=== PATIENT | female | born 2000 | race Caucasian/White ===

== ENCOUNTER 2024-12-22 10:23 | Outpatient (RCR) | payer BC, SELFPAY ==
--- OUTSIDE RECORDS SUMMARY | 2024-12-22 10:33 | XMS_ITS | Encounter Summary ---
Author Organization [facility] Address [address] [place] [address] Care Team Providers Care Sliver Lap Machine Tender Name Role Phone Esteban Lane MD Primary Care Provider [phone] Encounter Details Date Type Department Care Team (Late st Contact Info) Description 10/31/2024 Abstract [facility] [address] [place] [address] Braden Pinzon [address] [place] [address] Social History Tobacco Use Types Packs/Day Years Used Date Smoking Tobacco: Never Smokeless Tobacco: Never Alcohol Use Standard Drinks/Week Comments Not Currently 0 (1 standard drink = 0.6 oz pur e alcohol) caffeine: 2-3 cups per day Comments Unknown Sex and Gender Information Value Date Recorded Sex Assigned at Not on file Legal Sex Female 6:59 PM EDT Gender Identity Not on file Sexual Orientation Not on file documented as of this encounter Plan of Treatment Upcoming Encounters Date Type Department Care Team (Late st Contact Info) Description 03/05/2025 9:40 AM EDT Office Visit [facility] [address] [facility] [place] [phone] Braden Pinzon [address] HernandezBR[place] [phone] 11/19/2025 10:50 AM EDT Office Visit [facility] [address] [place] [address] Kristen Fang, ORTHODONTIST VICE PRESIDENT-PACKAGE DELIVERY ROOM SERVICE RUNNER [address] [facility] [address] [place] [address] documented as of this encounter Visit Diagnoses Not on filedocumented in this encounter Care Teams Sliver Lap Machine Tender Relationship Specialty Start Date End Date Esteban Lane MD [address] [place] [address] [address] [facility] [address] [place] [address] PCP - General Family Medicine 07/23/23 documented as of this encounter
--- OUTSIDE RECORDS SUMMARY | 2024-12-22 10:33 | XMS_ITS | Clinical Summary ---
Author Organization [facility] Address [address] [place] [address] Phone Care Team Providers Care Night Supervisor Name Role Phone Unavailable Primary Care Provider Unavailabl e Social History Tobacco Use Types Packs/Day Years Used Date Smoking Tobacco: Never Assessed Comments Unknown Sex and Gender Information Value Date Recorded Sex Assigned at Not on file Legal Sex Female 8:29 PM EST Gender Identity Not on file Sexual Orientation Not on file Plan of Treatment Not on file
--- OUTSIDE RECORDS SUMMARY | 2024-12-22 10:33 | XMS_ITS | Encounter Summary ---
Author Organization [facility] Address [address] [place] [address] Care Team Providers Care Manager Employee Benefits Name Role Phone Esteban Lane MD Primary Care Provider [phone] Encounter Details Date Type Department Care Team (Late st Contact Info) Description 12/20/2024 Telephone [facility] OB [address] [facility] [place] [address] Suzanna Lin LPN Social History Tobacco Use Types Packs/Day Years [...] on file documented as of this encounter Miscellaneous Notes * Telephone Encounter - Suzanna Lin LPN - 12/20/2024 3:25 PM EDT 12/19/24 @ 1002am Patient called and LMOM stating that she is on Day 4 of her cycle and she should have started her cycle by now. Patient voiced she had taken a UPT and it showed a faint positive. Patient would like to know if she should continue to wait or have labs drawn. 12/20/24 @3:26pm Called patient and LMOM that nursing was returning her call. Will await for to return call to office. Suzanna Conway LPN 12/21/24 Patient returned nurses call and request call back. 12/22/24 9:35am Called patient and LMOM requesting call back. [place] patient to discuss late cycle.Patient voiced that her last cycle started on 11/16/24. Patient stated that she had a positive test the other day and now everyday since has been negative. Patient would like to know next step. Informed patient that with using Provera to induce cycles we like for patient to be a week latefor cycle, confirm negative and then patient will be able to be given Provera to induce cycle. PVU and offered to have HCG drawn at [facility] to confirm either way. Nursing will reach out to patient or patient to call office prior to closing today to see if Provera is to be sent in or if labs need to be redrawn. Suzanna Conway LPN documented in this encounter Plan of Treatment Upcoming Encounters Date Type Department Care Team (Late st Contact Info) Description 03/05/2025 9:40 AM EDT Office Visit [facility] [address] [facility] [place] [address] Braden Pinzon DO [address] [facility] [place] [address] 11/19/2025 10:50 AM EDT Office Visit [facility] [address] [place] [phone] Kristen Fang, MATRIX DRIER TENDER-LINE PAINTING MACHINE OPERATOR [address] [place] [address] Scheduled Orders Name Type Priority Associated Diagnoses Orde r Schedule hCG, quantitative, Lab Routine Anovulation Irregular menses Expected: 12/22/2024 (Approximate), Expires: 12/22/2025 documented as of this encounter Visit Diagnoses Diagnosis Anovulation Female infertility associated with anovulation Irregular menses Irregular menstrual cycle documented in this encounter Care Teams Manager Employee Benefits Relationship Specialty Start Date End Date Esteban Lane MD [address] [place] [phone] PCP - General Family Medicine 07/23/23 documented as of this encounter
== END 2025-01-09 09:47 | disposition home or self-care (01) ==
LOC: LAB 10:23
PROVIDERS: PCP Family Medicine; Visit Provider Obstetrics & Gynecology
DX: Z51.81 Encounter for therapeutic drug level monitoring (principal); N97.0 Female infertility associated with anovulation; N92.6 Irregular menstruation, unspecified
CPT/HCPCS: 36415; 84702

== ENCOUNTER 2025-02-19 15:25 | Outpatient (RCR) | payer BC, SELFPAY | END 2025-03-10 23:59 | disposition home or self-care (01) | LOC: LAB 15:25 | PROVIDERS: PCP Family Medicine; Visit Provider Obstetrics & Gynecology | DX: N97.0 Female infertility associated with anovulation (principal); N92.6 Irregular menstruation, unspecified | CPT/HCPCS: 36415; 84144; 84702 ==

== ENCOUNTER 2025-03-05 15:01 | Outpatient (REF) | payer BC, SELFPAY ==
[2025-03-09 17:09] LABS: Age Gdln ACOG Testing Note (.); IGP, rfx Aptima HPV ASCU Note (.)
== END 2025-03-05 15:02 | disposition home or self-care (01) ==
LOC: LAB 15:01
PROVIDERS: PCP Family Medicine; Visit Provider Nurse Practitioner Family
DX: Z01.419 Encounter for gynecological examination (general) (routine) without abnormal findings (principal)
CPT/HCPCS: 88175

== ENCOUNTER 2025-03-28 14:18 | Outpatient (OUT) | payer BC, SELFPAY ==
[2025-03-28 15:11] LABS: Hematocrit 37.7 % (36.0-48.0); Hemoglobin 13.3 g/dL (12.0-16.0); Immature Granulocytes Abs Auto 0.05 10^3/uL (0.00-0.03); Immature Granulocytes Pct Auto 0.5 % (0.0-0.5); Lymphocytes Absolute Auto 3.1 10^3/uL (1.2-3.8); Mean Corpuscular HGB Conc 35.3 g/dL (29.9-35.2); Mean Corpuscular Hemoglobin 31.3 pg (26.7-34.0); Mean Corpuscular Volume 88.7 fL (81.0-99.0); Platelet Count 276 10^3/uL (150-450); Red Blood Count 4.25 10^6/uL (4.20-5.40); White Blood Count 10.3 10^3/uL (4.0-11.0)
[2025-03-28 15:32] LABS: Thyroid Stimulating Hormone 2.418 uIU/mL (0.358-3.740)
== END 2025-03-28 14:19 | disposition home or self-care (01) ==
LOC: LAB 14:20
PROVIDERS: PCP Family Medicine; Visit Provider Obstetrics & Gynecology
DX: Z79.899 Other long term (current) drug therapy (principal); N91.2 Amenorrhea, unspecified
CPT/HCPCS: 36415; 82397; 83036; 84443; 84702; 85025

== ENCOUNTER 2025-05-14 10:34 | Outpatient (OUT) | payer BC, SELFPAY ==
--- OUTSIDE RECORDS SUMMARY | 2025-05-14 10:38 | XMS_ITS | Clinical Summary ---
Author Organization [facility] Address [address] [place] [address] Phone Care Team Providers Care Business Analyst Project Manager Name Role Phone Unavailable Primary Care Provider Unavailabl e Social History Tobacco UseTypesPacks/DayYears UsedDateSmoking Tobacco: Never Assessed CommentsUnknownSex and Gender InformationValueDate RecordedSex Assigned at Not on fileLegal SiaTehbqv74/25/2022 8:29 PM ESTGender IdentityNot on fileSexual OrientationNot on file Plan of Treatment Not on file
--- OUTSIDE RECORDS SUMMARY | 2025-05-14 10:38 | XMS_ITS | Clinical Summary ---
Author Organization [facility] Address [address] [place] [address] Care Team Providers Care Feller Operator Name Role Phone Esteban Lane MD Primary Care Provider [phone] Allergies Active AllergyReactionsCriticalityNoted DateCommentsPenicillinsRash,UnknownLow 07/23/2023 Medications MedicationSigDispense QuantityRefillsLast FilledStart DateEnd DateStatus SUMAtriptan (Imitrex) 100 MG tablet Take 100 mg by mouth 1 (one) time if vfwaqc413Active MV-Min-Fe Fum-FA-DHA ( 1 PO) Take 1 each by mouth DailyActive verapamil ER (Verelan) 180 MG 24 hr capsule Take 180 mg by mouth Daily4Active SEMAGLUTIDE,0.25 OR 0.5MG/DOS, SC 5Active Multiple Vitamins-Minerals (MULTI ADULT GUMMIES PO) Active aspirin 81 MG EC tablet Take 81 mg by mouth DailyActive medroxyPROGESTERone (Provera) 10 MG tablet Indications:Dysfunctional uterine bleedingTake 1 tablet (10 mg) by mouth Daily for 10 days 10 tablet 5Active metFORMIN XR (Glucophage-XR) 500 MG 24 hr tablet Indications:Female infertility,AnovulationTAKE 2 TABLETS BY MOUTH DAILY 180 tablet 5Active Ree 0.25-35 MG-MCG tablet Indications:AmenorrheaTAKE 1 TABLET BY MOUTH EVERY DAY 84 tablet 5Active norgestimate-ethinyl estradiol (Sprintec 28) 0.25-35 MG-MCG tablet Indications:AmenorrheaTake 1 tablet by mouth Daily for 28 days Take 1 tablet by mouth daily 28 tablet 51Discontinued Active Problems ProblemNoted DateDiagnosed DateFemale /21/2025 Encounters DateTypeDepartmentCare GvkzUtjegwohzof45/14/2025Telephone [facility] [address] [facility] [place] [address] Suzanna Lin LPN 04/17/2025Refill [facility] [address] [facility] [place] [address] Monse Orosco PA Qakrzaqygb67/28/2025Refill [facility] [address] [facility] [place] [address] Braden Pinzon DO Female infertility; Kszywladcgc48/22/2025 2:30 PM EDTAncillary Procedure [facility] [address] [facility] [place] [address] Uepnwfhlnd89/17/2025 1:20 PM EDTOffice Visit [facility] [address] [facility] [place] [address] Monse Orosco, PA Follow-up encounter involving medication; Ckmiwnwmfv09/17/2025Clinisync Result Encounter [facility] External Department Unsolicited Braden Pinzon DO 5Bamboo flowsheet [facility] [address] [facility] [place] [address] Monse Orosco PA 03/26/2025Telephone [facility] [address] [facility] [place] [address] Krissy Esparza MA 03/13/2025Orders Only [facility] [address] [facility] [place] [address] Pamela Murphy LPN 03/05/2025 9:40 AM EDTOffice Visit [facility] [address] [facility] [place] [address] Braden Pinzon, DO Dysfunctional uterine bleeding (Primary Dx); Well woman exam with routine gynecological exam; Encounter to discuss test rhlnuhy7003/05/2025linisync Result Encounter [facility] External Department Unsolicited Cynthia Kaufman NP 03/05/2025amboo flowsheet [facility] [address] [place] [address] Braden Pinzon, 02/23/2025Telephone [facility] [address] [facility] [place] [address] Pamela Murphy LPN 02/21/2025Results Follow-Up [facility] [address] [place] [address] Suzanna Lin LPN [facility] PREG QUANT HCG, ALL HZXFXQGHYOCT63/11/2025linisync Result Encounter [facility] External Department Unsolicited Braden Pinzon, DO 02/19/2025Telephone [facility] [address] [place] [address] Pamela Murphy, REGI from Last 3 Months Family History Medical HistoryRelationNameCommentsNo Known ProblemsBrotherKidney cancerMaternal GrandfatherPancreatic cancerMaternal Grandmothermets to shira and reproductive organBreast cancerMotherlump and lymph removedHypertensionMotherMelanomaPaternal GrandfatherRelationNameStatusCommentsBrotherFatherAliveMaternal Grandfather Maternal GrandmotherMotherAlivePaternal Grandfather Social History Tobacco UseTypesPacks/DayYears UsedDateSmoking Tobacco: NeverSmokeless Tobacco: Never Tobacco Cessation:Counseling Given: Not Answered Alcohol UseStandard Drinks/WeekCommentsNot Currently0 (1 standard drink = 0.6 oz pure alcohol)caffeine: 2-3 cups per dayCommentsUnknownSex and Gender InformationValueDate RecordedSex Assigned at BirthNot on fileLegal SexFemale 09/23/2022 6:59 PM EDTGender IdentityNot on fileSexual OrientationNot on file Last Filed Vital Signs Vital SignReadingTime TakenCommentsBlood Hssheiyc315/7403/28/2025 1:17 PM EDT Blloz78534/12/2024 5:04 PM DTSEdwkgfxpjdu27.2 ??C (99 ??F)07/23/2023 5:04 PM EST Respiratory Rate--Oxygen Xviwrzcegn17%07/23/2023 5:04 PM ESTInhaled Oxygen Concentration--Jbmjjq407 kg (230 lb 6.4 oz)03/28/2025 1:17 PM YKWMzzozb693.5 cm (5' 2 )08/28/2022 12:00 PM ESTBody Mass Index42.14008/28/2022 12:00 PM EST Plan of Treatment DateTypeDepartmentCare Team (Latest Contact Info)Gmexdpnajyz58/11/2026 10:50 AM EDTOffice Visit [facility] [address] [place] [address] Kristen Fang, INFORMATION SCIENTIST-RESEARCH BIOLOGIST [address] [place] [address] Procedures Procedure NamePriorityDate/TimeAssociated DiagnosisCommentsUS PELVIC COMPLETE W/ EOWfzgund68/22/2025 3:05 PM EDT Amenorrhea ALL ANTI-MULLERIAN RGPIFFIJetktic91/17/2025 2:30 PM EDT [facility] PREG QUANT JBANlmdtfc36/17/2025 2:30 PM EDT ALL THYROID STIM JIQWVURFvhihln97/17/2025 2:30 PM EDT MLR HEMOGLOBIN W4SGmkefcu75/17/2025 2:30 PM EDT ALL CBC WITH AUTO IZYAZwlilbu24/17/2025 2:30 PM EDT POCT , OBUONOcoveqr14/17/2025 1:31 PM EDT Amenorrhea POCT URINALYSIS AEJJVJUGRfdphqs14/17/2025 1:27 PM EDT Amenorrhea IGP,APTIMA HPV,AGE ACXRXfktqbf19/25/2025 9:59 AM EDT PAP PQCRSJyvsbkc50/25/2025 12:00 AM EDTALL ISAEBFEXGMQYBwazhel28/11/2025 3:40 PM EDT [facility] PREG QUANT UYWQgqqprb67/11/2025 3:40 PM EDT from Last 3 Months Results * US Pelvis w/ TV (04/02/2025 3:05 PM EDT)Anatomical RegionLateralityModality PelvisUltrasoundSpecimen (Source)Anatomical Location / LateralityCollection Method / VolumeCollection TimeReceived Time04/03/2025 11:42 AM EDT Impressions 04/03/2025 12:20 PM EDT 1. Right ovarian 3 cm benign cyst 2. Normal uterus TRANSCRIBED BY: ? ELECTRONICALLY SIGNED BY: Aleksey Leon MD Narrative 04/03/2025 12:20 PM EDT FINDINGS: Uterus ? 7.5 x 3.5 x 5.6 cm Endometrium ?4 mm Right ovary ? 5.8 x 4.0 x 3.6 cm (cyst) Left ovary ?3.2 x 2.8 x 1.7 cm Uterine fundal anteflexion/anteversion. Normal myometrium. Normal endometrium. Normal left ovary. Minimally complex, thinly septated right ovarian benign cyst, 3.0 x 2.9 x 2.3 cm. No increase in vascularity or shadowing. No pelvic fluid. Procedure Note Aleksey Leon MD - 04/03/2025 FINDINGS: Uterus 7.5 x 3.5 x 5.6 cm Endometrium 4 mm Right ovary 5.8 x 4.0 x 3.6 cm (cyst) Left ovary 3.2 x 2.8 x 1.7 cm Uterine fundal anteflexion/anteversion. Normal myometrium. Normalendometrium. Normal left ovary. Minimally complex, thinly septated right ovarian benigncyst, 3.0 x 2.9 x 2.3 cm. No increase in vascularity or shadowing. No pelvic fluid. IMPRESSION: 1. Right ovarian 3 cm benign cyst 2. Normal uterus TRANSCRIBED BY: ELECTRONICALLY SIGNED BY: Aleksey Leon MD Authorizing ProviderResult TypeResult StatusCorey Alberta [facility] PROCEDURESFinal Result * [facility] PREG QUANT HCG (03/28/2025 2:30 PM EDT) Only the most recent of2 resultswithin the time period is included. ComponentValueRef RangeTest MethodAnalysis TimePerformed AtPathologist Signature HCG QUANTITATIVE<1mIU/mLTBHComment: 5-50 ? 0.2-1 WEEK 50-500 ? 1-2 WEEKS 100-5,000 ?2-3 WEEKS 500-10,000 ? 3-4 WEEKS 1,000-50,000 ?? 4-5 WEEKS 10,000-100,000 5-6 WEEKS 15,000-200,000 6-8 WEEKS 10,000-100,000 2-3 MONTHS Specimen (Source)Anatomical Location / LateralityCollection Method / Volume Collection TimeReceived Time03/28/2025 2:30 PM EDT03/28/2025 2:32 PM EDT Narrative [facility] - 03/28/2025 3:32 PM EDT Authorizing ProviderResult TypeResult StatusCorey Alberta DOCLINISYNCFinal Result Performing OrganizationAddressCity/State/ZIP CodePhone Number [facility] * MLR HEMOGLOBIN A1C (03/28/2025 2:30 PM EDT)ComponentValueRef RangeTest Method Analysis TimePerformed AtPathologist SignatureGLYCOHEMOGLOBIN A1C5.04.5 - 6.2 %TBHComment: ADA RECOMMENDED LIMIT 4.0 - 6.0 ADA THERAPEUTIC TARGET < 7.0 ACTION SUGGESTED > 7.0 ESTIMATED AVERAGE OXVIBDO63yv/dLTBHSpecimen (Source)Anatomical Location / LateralityCollection Method / VolumeCollection TimeReceived Time03/28/2025 2:30 PM EDT03/28/2025 2:32 PM EDT Narrative [facility] - 03/28/2025 3:31 PM EDT Authorizing ProviderResult TypeResult StatusCorey Alberta DOCLINISYNCFinal Result Performing OrganizationAddressCity/State/ZIP CodePhone Number [facility] * ALL THYROID STIM HORMONE (03/28/2025 2:30 PM EDT)ComponentValueRef RangeTest MethodAnalysis TimePerformed AtPathologist SignatureTHYROID STIMULATING HORMONE2.4180.358 - 3.740 uIU/mLTBHSpecimen (Source)Anatomical Location / LateralityCollection Method / VolumeCollection TimeReceived Time03/28/2025 2:30 PM EDT03/28/2025 2:32 PM EDT Narrative [facility] - 03/28/2025 3:32 PM EDT Authorizing ProviderResult TypeResult StatusCorey Alberta DOCLINISYNCFinal Result Performing OrganizationAddressCity/State/ZIP CodePhone Number [facility] * (ABNORMAL) ALL CBC WITH AUTO DIFF (03/28/2025 2:30 PM EDT)ComponentValueRef RangeTest MethodAnalysis TimePerformed AtPathologist SignatureTBH WBC10.34.0 - 11.0 10 3/uLTBHTBH RBC4.254.20 - 5.40 10 6/uLTBHTBH HGB13.312.0 - 16.0 g/dLTBH TBH HCT37.736.0 - 48.0 %TBHTBH MCV88.781.0 - 99.0 fLTBHTBH MCH31.326.7 - 34.0 pgTBHTBH MCHC35.3(H)29.9 - 35.2 g/dLTBHTBH RDW11.911.0 - 15.0 %TBHTBH PDI360 150 - 450 10 3/uLTBHTBH MPV11.19.5 - 13.5 fLTBHNEUTROPHILS PERCENT AUTO60.8 43.0 - 75.0 %TBHLYMPHOCYTES PERCENT AUTO30.120.5 - 60.0 %TBHMONOCYTES PERCENT AUTO7.11.7 - 12.0 %TBHTBH EO %1.00.9 - 7.0 %TBHBASOPHILS PERCENT AUTO0.50.2 - 2.0 %TBHIMMATURE GRANULOCYTES PCT AUTO0.50.0 - 0.5 %TBHNEUTROPHILS ABSOLUTE AUTO6.31.4 - 6.5 10 3/uLTBHLYMPHOCYTES ABSOLUTE AUTO3.11.2 - 3.8 10 3/uLTBH MONOCYTES ABSOLUTE AUTO0.70.3 - 0.8 10 3/uLTBHTBH EO #0.10.0 - 0.7 10 3/uLTBH BASOPHILS ABSOLUTE AUTO0.10.0 - 0.1 10 3/uLTBHIMMATURE GRANULOCYTES ABS AUTO 0.05(H)0.00 - 0.03 10 3/uLTBHSpecimen (Source)Anatomical Location / Laterality Collection Method / VolumeCollection TimeReceived Time03/28/2025 2:30 PM EDT 03/28/2025 2:32 PM EDT Narrative [facility] - 03/28/2025 3:12 PM EDT Authorizing ProviderResult TypeResult StatusCorey Alberta DOCLINISYNCFinal Result Performing OrganizationAddressCity/State/ZIP CodePhone Number [facility] * ALL ANTI-MULLERIAN HORMONE (03/28/2025 2:30 PM EDT)ComponentValueRef RangeTest MethodAnalysis TimePerformed AtPathologist SignatureANTI-MULLERIAN HORMONE (AMH)1.68. ng/mLTBHComment: For assays employing antibodies, the possibility exists for interference by heterophile antibodies in the samples.1 1.Sandrine Norton ??Interferences in Immunoassays - still a threat. Clin. Chem. 2000; 46: 3122-3018. This test was developed and its performance characteristics determined by [employer]. It has not been cleared or approved by the Food and Drug Administration. Reference Range: Females 20 - 25y: 1.23 - 11.51 Median ??4.70 AMH concentrations of >= 1.06 ng/mL is correlated with a better response to ovarian stimulation, produced more retrievable oocytes and higher odds of live according to Lathaer et al. ??Fertility and Sterility. 2010: 94:0763-1459. ??The current AMH test method correlates with the study method with a slope of 0.94. Females at risk of ovarian hyperstimulation syndrome or polycystic ovarian syndrome (PCOS) may exhibit elevated serum AMH concentrations. ?? AMH levels from PCOS patients may be 2 to 5 fold higher than age-appropriate reference interval values. Granulosa cell tumors of the ovary may secrete AMH along with other tumor markers. ??Elevated AMH is not specific for malignancy, and the assay should not be used exclusively to diagnose or exclude an AMH-secreting ovarian tumor. Performed at: ??[facility] [address] [place] [address] ??[id number] Strap Sewer: Rivera Hester MD, Phone: ??[phone] Specimen (Source)Anatomical Location / LateralityCollection Method / Volume Collection TimeReceived Time03/28/2025 2:30 PM EDT03/28/2025 2:32 PM EDT Narrative [facility] - 03/31/2025 2:11 AM EDT Authorizing ProviderResult TypeResult StatusCorey Alberta DOCLINISYNCFinal Result Performing OrganizationAddressCity/State/ZIP CodePhone Number [facility] * POCT , urine manually resulted (03/28/2025 1:31 PM EDT)ComponentValue Ref RangeTest MethodAnalysis TimePerformed AtPathologist SignaturePreg Test, UrNegativeNegativeSpecimen (Source)Anatomical Location / LateralityCollection Method / VolumeCollection TimeReceived FznjOffwh35/17/2025 1:31 PM EDT Narrative Authorizing ProviderResult TypeResult StatusAmy [facility] TEST ENTER/EDIT ORDERABLESFinal Result * (ABNORMAL) POCT urinalysis dipstick manually resulted (03/28/2025 1:27 PM EDT) ComponentValueRef RangeTest MethodAnalysis TimePerformed AtPathologist SignatureColor, UAYellowClarity, UAClearGlucose, UANegativeNegative - 2000(110) ++++ mg/dLBilirubin, UANegativeNegative - 4(70) +++ mg/dLKetones, UA NegativeNegative - 160(16) ++++ mg/dLSpec Grav, UA1.0151 - 1.03Blood, UA PositiveNegative - 50 Brendan/mcLpH, UA6.55 - 9Protein, UAPositiveNegative - 2000(20) ++++ mg/dLUrobilinogen, UA1.00.2 - 12 mg/dLLeukocytes, UAPositive Negative - 500+++ Shakira/mcLNitrite, UANegativeNegative - PositiveSpecimen (Source)Anatomical Location / LateralityCollection Method / VolumeCollection TimeReceived KdatZecpv32/17/2025 1:27 PM EDT Narrative Authorizing ProviderResult TypeResult StatusSentara [facility] TEST ENTER/EDIT ORDERABLESFinal Result * IGP,APTIMA HPV,AGE GDLN (03/05/2025 9:59 AM EDT)ComponentValueRef RangeTest MethodAnalysis TimePerformed AtPathologist SignatureAGE GDLN ACOG TESTINGNote. TBHComment: ?? TESTS ? RESULT ??FLAG ??UNITS ?REF RANGE ??LAB ?? Clinician Provided Cytology Information ?? Source.............Cervix ?? No. of containers..01 ThinPrep Vial Age Algo ACOG Carine... ??21-29 ? 01 ?FLAG LEGEND: ?L-Low Normal,H-High Normal,LL-Alert Low,HH-Alert High <-Panic Low,>-Panic High,A-Abnormal,AA-Critical Abnormal Performed at: 01 =G ?[facility] ?? [address] [place] ??[address] ?? Brynn Cook MD, IGP, RFX APTIMA HPV ASCUNote.TBHComment: ?? TESTS ? RESULT ??FLAG ??UNITS ?REF RANGE ??LAB DIAGNOSIS: ?02 ?? NEGATIVE FOR INTRAEPITHELIAL LESION OR MALIGNANCY. Specimen adequacy: ?02 ?? Satisfactory for evaluation. No endocervical component is identified. Performed by: ? 02 ?? [employer]ah[employer] Account Executive (ASCP) . ? 02 Note: ? Note ?03 ?? The Pap smear is a screening test designed to aid in the ?? detection of premalignant and malignant conditions of the ?? uterine cervix. ??It is not a diagnostic procedure and ?? should not be used as the sole means of detecting cervical ?? cancer. ??Both false-positive and false-negative reports do ?? occur. Test Methodology: ? Note ?03 ?? This liquid based ThinPrep(R) pap test was screened with ?? the use of an image guided system. . ? 02 ?? The HPV DNA reflex criteria were not met with this specimen ?? result therefore, no HPV testing was performed. ?FLAG LEGEND: ?L-Low Normal,H-High Normal,LL-Alert Low,HH-Alert High <-Panic Low,>-Panic High,A-Abnormal,AA-Critical Abnormal Performed at: 02 K[facility] ?? [address], [place], [place] ??[address] ?? Kevin Mariano MD, 03 WB ?[facility] ?? [address] [facility] [address] [place] [place], [place] ??[address] ?? Brynn Cook MD, Performed at: ??=G - [facility] [address] [facility] [place] [place], [place] ??[id number] Strap Sewer: Brynn Cook MD, Phone: ??[phone] Performed at: ??[facility] - [facility] [address] [place], [place] ??[id number] Strap Sewer: Kevin Mariano MD, Phone: ??[phone] Specimen (Source)Anatomical Location / LateralityCollection Method / Volume Collection TimeReceived Time03/05/2025 9:59 AM EDT03/05/2025 3:43 PM EDT Narrative [facility] - 03/09/2025 5:09 PM EDT BRUSH-SPATULA CERVIX Authorizing ProviderResult TypeResult StatusKrjessiea Shae NPLAB BLOOD ORDERABLESFinal ResultPerforming OrganizationAddressCity/State/ZIP CodePhone Number [facility] * Pap Smear (03/05/2025 12:00 AM EDT)Specimen (Source)Anatomical Location / LateralityCollection Method / VolumeCollection TimeReceived TimeSwabCervical swab / Unknown Narrative Authorizing ProviderResult TypeResult StatusKrjessiea Shae NPLAB CYTOLOGY ORDERABLESFinal ResultPerforming OrganizationAddressCity/State/ZIP CodePhone Number EX[facility]NAL [facility] * ALL PROGESTERONE (02/19/2025 3:40 PM EDT)ComponentValueRef RangeTest Method Analysis TimePerformed AtPathologist SignaturePROGESTERONE0.8. ng/mLTBH Comment: ? Follicular phase ? 0.1 - ?? 0.9 ? Luteal phase ? 1.8 - ??23.9 ? Ovulation phase ?0.1 - ??12.0 ?First trimester ?11.0 - ??44.3 ?Second trimester ?? 25.4 - ??83.3 ?Third trimester ?58.7 - 214.0 ? Postmenopausal ? 0.0 - ?? 0.1 Performed at: ??CB - [facility] [address] ??[id number] Strap Sewer: Ajit Reyes PhD, Phone: ??[phone] Specimen (Source)Anatomical Location / LateralityCollection Method / Volume Collection TimeReceived Time02/19/2025 3:40 PM EDT02/19/2025 4:23 PM EDT Narrative [facility] - 02/20/2025 4:07 AM EDT Authorizing ProviderResult TypeResult StatusCorey Alberta DOCLINISYNCFinal Result Performing OrganizationAddressCity/State/ZIP CodePhone Number [facility] from Last 3 Months Insurance Care Teams Team MemberRelationshipSpecialtyStart DateEnd Date Esteban Lane MD [address] [place] [phone] [facility] - [facility]
== END 2025-05-14 10:35 | disposition home or self-care (01) ==
LOC: LAB 10:35
PROVIDERS: PCP Family Medicine; Visit Provider Obstetrics & Gynecology
DX: N97.0 Female infertility associated with anovulation (principal)
CPT/HCPCS: 36415; 84144

== ENCOUNTER 2025-05-22 09:23 | Outpatient (OUT) | payer BC, SELFPAY ==
--- OUTSIDE RECORDS SUMMARY | 2025-05-15 04:56 | XMS_ITS | Continuity of Care Document ---
Author Organization [facility] Address [address] [place] [address] Phone Care Team Providers Care Category Specialist Name Role Phone Esteban Lane DO Primary Care Provider Braden Pinzon DO Attending Provider Guadalupe Amezcua LPN Attending Provider UnavailCynthia Garg APRN Attending Provider Yasmin Hall Attending Provider Unavailable Esteban Lane DO Attending Provider [phone] Genie Hale APRN-MECHANICAL PROJECT ENGINEER-C Attending Provider + Care Teams Patient Care Team Team Status: Active Member Role/Relationship Status Dates Esteban Lane DO Primary Care Provider Active Visit Care Team Team Status: Active Member Role/Relationship Status Dates Esteban Lane DO Primary Care Provider Active Start: February 19, 2025 Braden Pinzon DOAttsiobhan ProviderActiveStart: February 19, 2025 Visit Care Team Team Status: Active Member Role/Relationship Status Dates Esteban Lane DO Primary Care Provider Active Start: February 20, 2025 Donny Cruz ProviderActiveStart: February 20, 2025 Visit Care Team Team Status: Active Member Role/Relationship Status Dates Esteban Lane DO Primary Care Provider Active Start: March 05, 2025 Cynthia Kaufman APRN ATMOSPHERIC DRIER TENDER-CAttending ProviderActiveStart: March 05, 2025 Visit Care Team Team Status: Active Member Role/Relationship Status Dates Esteban Lane DO Primary Care Provider Active Start: March 07, 2025 Yasmin Dailey ProviderActiveStart: March 07, 2025 Visit Care Team Team Status: Inactive Member Role/Relationship Status Dates Esteban Lane DO Primary Care Provider Active Start: March 08, 2025 End: March 08, 2025Esteban Lane DOAttending ProviderActiveStart: March 08, 2025 End: March 08, 2025 Visit Care Team Team Status: Active Member Role/Relationship Status Dates Esteban Lane DO Primary Care Provider Active Start: March 28, 2025 Adeola Pritchett ProviderActiveStart: March 28, 2025 Visit Care Team Team Status: Inactive Member Role/Relationship Status Dates Esteban Lane DO Primary Care Provider Active Start: April 09, 2025 End: April 09, 2025Genie Hale APRN-FNP-CAttending ProviderActive Start: April 09, 2025 End: April 09, 2025 Patient Care Team Team Status: Active Member Role/Relationship Status Dates Esteban aLne DO Primary Care Provider Active Start: May 14, 2025 Adeola Pritchett ProviderActiveStart: May 14, 2025 Patient Care Team Team Status: Inactive Member Role/Relationship Status Dates Esteban Lane DO Primary Care Provider Active Start: May 15, 2025 End: May 15, 2025Adeola Bullard ProviderActiveStart: May 15, 2025 End: May 15, 2025 Chief Complaint and Reason for Visit Chief Complaint Admit Date Amb Documentation February 20, 2025 2: 15pm Amb Documentation March 07, 2025 9: 41am 3 month March 08, 2025 8: 53am migraine f/u last seen 11/2022April 09, 2025 1:38pm Pillars May 15, 2025 9 :24am Reason for Visit Admit Date Migraine headache March 08, 2025 8: 53am History of seizures as a child April 09, 2025 1:38pm Migraine without aura and wi thout status migrainosus, not intractable April 09, 2025 1:38pm Allergies, Adverse Reactions, Alerts Allergen Type Severity Reaction Last Updated Verified Status amoxicillin Allergy Unknown Unknown Reaction Novembe r 2024 9:30am Yes Active cat dander Allergy Unknown Unknown Reaction May 15, 2025 9:30am Yes Active house dust Allergy Unknown Unknown Reaction May 15, 2025 9:30am Yes Active mold Allergy Unknown Unknown Reaction May 15, 2025 9:30am Yes Active Social History Smoking Status Status Start Date End Date Date of Observa tion Never smoked tobacco (finding) May 15, 2025 9:42am Observation Status Observation Response Date of Response Legal Sex [facility] (finding) [facility] Family History Relationship Condition Age at Onset Recorded Date/T rocio mother Diabetes mellitus Unknown HypertensionUnknownMalignant neoplasm of breastUnknownMalignant neoplasmUnknown Problems Active Problems Problem Diagnosis/Recorded Date Onset Date Stat Migraine without aura and wi thout status migrainosus, not intractable April 09, 2025 7:48pm Unknown Active Infertility April 28, 2024 8:18am Unknown Ac tive Raynauds syndrome November 29, 2024 8:23am Unknown A ctive History of seizures as a child April 09, 2025 7: 49pm Unknown Active Migraine headache October 31, 2023 4:43pm Unknown Active PCOS (polycystic ovarian syndrome) October 17, 2024 9:1 7am Unknown Active Body mass index (BMI) of 40. 1 to 44.9 in adult October 17, 2024 9:21am Unknown Active Medications Medication Status Dose Units Route Directions Qty Days Refills S tart Date Stop Date End Date Reason(s) Instructions Adherence Sumatriptan Succinate (Imitrex) 100 mg tablet Discontinued 100 MG PO EVERY 2-4 HOUR S as needed for migraine headache 14 12 2 October 10 3:16pm April 28, 2024 8:00am1 tablet as needed Orally take at the onset of headache, may repeat if needed in 30 minutesVerapamil 180 mg capsule,ext rel. pellets 24 qvMljqmzkofzxg206HDSPYgrhr60346Whg 2023 3:32pmDecember 2023 8:54amSumatriptan Succinate (Imitrex) 100 mg tykttuFvkugdssyvsy074MBOHLxzf as needed for migraine ajzmxrdq55018Zkvtfqe 18th, 2024 10:09amOctober 2023 10:12am1 tablet as needed Orally take at the onset of headache, repeat 1 time in 2 hours, max of 2 tabs dailySumatriptan Succinate (Imitrex) 100 mg tabletActive 100MGPOOnce as needed for migraine zljgmbid90625Fwuruzp 18th, 2024 10:12am1 tablet as needed Orally take at the onset of headache, repeat 1 time in 2 hours, max of 2 tabs dailyComplies with drug therapyTerbinafine Hcl 250 mg tablet Yfjltzvlqkdf918DZWTVlnry89264Jopdobdy 15th, 2024 12:00amApril 2024 9:05am Verapamil 180 mg capsule,ext rel. pellets 24 hrDiscontinued0.ROUTE.KMDYPZZ214 June 12, 2024 8:54amDece2023 8:56amTAKE 1 CAPSULE BY MOUTH EVERY DAYNitrofurantoin Monohyd/M-Cryst (Macrobid) 100 mg tssybtoTzovywsayqmf993AEQH J49I3136Rwgnjvjh 2023 12:00amApril 2024 9:05amSemaglutide 0.25 mg/0.05 mL syringeDiscontinued1.2MGSUBCUT.q weeklyJuly 2024 2:25pmAugust 2024 1:15pm1.2 mg weekly x4 weeks 01/17/2025 - buderer compoundSemaglutide 0.25 mg/0.05 mL syringeDiscontinued1.8MGSUBCUT.q weeklyAugust 2024 1:15pm May 15, 2025 9:33am- buderer compoundVerapamil 180 mg capsule,ext rel. pellets 24 hrActive0.ROUTE.OZGHOMK358Aurlilpez 5th, 2025 8:30amTAKE 1 CAPSULE BY MOUTH EVERY DAYComplies with drug therapySemaglutide 0.25 mg/0.05 mL syringe Active2.2MGSUBCUT.q weeklyNov2024 9:33am- buderer compoundComplies with drug therapySumatriptan Succinate (Imitrex) 100 mg izcapdXowchslbsgqv649AK POas neededMarch 2023 11:00pmApril 2023 3:18pm1 tablet as needed Orally take at the onset of headache, may repeat if needed in 30 minutes Verapamil 180 mg capsule,ext rel. pellets 24 dgKkezkttbvrmr970TQAPKtqcyXlfaw 2023 11:00pmMay 2023 3:34pmIbuprofen 200 mg wtydgsYkduhg718KCKZBhoxb times daily as [facility] 2023 11:00pmComplies with drug therapyMetformin 500 mg tablet extended release 24 luTsxqyanqaccg423TBXPDpvhyXcend 2023 11:00pmOctober 2023 8:01amClomiphene Citrate (Clomid) 50 mg tablet Lrtiarrivaac841TTDLEfyoqKdrfu 2023 11:00pmOctober 2023 8:01am Metformin 500 mg tablet extended release 24 rlWifwyqxzhvkt378UVGNRluhe daily April 28, 2024 8:00amMa2024 8:08amSumatriptan Succinate (Imitrex) 100 mg kugjerNcksqltdpfzk578JTMGVRNDK 2-4 HOURS as needed for migraine headache 74798Mjxfebe 2023 7:59amOctober 2023 10:12am1 tablet as needed Orally take at the onset of headache, may repeat if needed in 30 minutes Metformin 1,000 mg fndhoiZdoqknpoyqvf1081OFNYSkddu dailyNovember 28, 2024 11:00pm March 08, 2025 8:11amAspirin 81 mg ofniguLfbpky49DLPHGxysvLzq 20th, 2025 11:00pmComplies with drug therapySemaglutide 0.25 mg/0.05 mL syringeDiscontinued MGSUBCUT.q weeklyNovember 28, 2024 11:00pmNovember 29, 2024 12:01pmSemaglutide 0.25 mg/0.05 mL syringeDiscontinued0.6MGSUBCUT.q weeklyNovember 29, 2024 12:01pmJuly 2024 2:25pm0.6 mg weekly- buderer compoundMetformin 1,000 mg tablet Piugqhnqhizu3635BMMPEyraxQfrihd 2024 8:04amNovember 2024 9:31am Medroxyprogesterone 10 mg hezncsOmsiknaftqos55SPKLIbtgqLmgjmb 2024 11:00pm April 09, 2025 12:45pmProchlorperazine Maleate 10 mg jelhlrCnrgyv88FIOF Three times daily as neededAucarlsbad medical centert 2024 11:00pmComplies with drug therapy Letrozole 2.5 mg tabletDiscontinued7.5MGPODailySentara Careplex Hospitalt 2024 11:00pmMay 15, 2025 9:31amTAKE 3 TABLETS BY MOUTH ON DAYS 3 THRU 7 OF CYCLE FOR 5 DAYS Metformin 500 mg tablet extended release 24 ygSpzfcx2484DZIXqhekuLlcxop 2024 11:00pmComplies with drug therapyNaproxen 500 mg eteabbCjuibecdbzab657CXLO Twice daily as neededAucarlsbad medical centert 2024 11:00pmSept2024 12:46pm Inositol 500 mg epednmyLmyveudxlwpi9172NDCXVdzfcFwjafp 2024 11:00pm May 15, 2025 9:31amRimegepant (Nurtec Odt) 75 mg tablet,disintegrating Vfwexj74DRHPYlcms 48 hours [facility]20[facility] 12:00amComplies with drug therapyDoxycycline Hyclate 100 mg ymkgyagKvtdhknnqikl939HLPAVuucy pymvq50263 June 15, 2024 12:00amApril 2024 9:04amVerapamil 180 mg capsule,ext rel. pellets 24 qpMrhzaeassqyn726KPOSVikneOtjmiqeu 5th, 2024 8:55amSept2024 8:30amClomiphene Citrate (Clomid) 50 mg loeimoAjluyvsbmnhu85VZCIDixqn June 15, 2024 12:00amApril 2024 9:04amAcetaminophen (Tylenol Extra Strength) 500 mg axqbjeKwziqv946QUZXFllkc 6 hours as neededApr2024 11:00pmComplies with drug therapySemaglutide (Weight Loss) (Wegovy) 0.25 mg/0.5 mL pen injectorDiscontinued0.25MGSUBCUTevery week2.5300April 2024 11:00pm November 29, 2024 8:08amadminister weeks 1 through 4 of therapyNorgestimate-Ethinyl Estradiol (Ree) 0.25-0.035 mg owikkuJhporvaksdle5UESNCXvotoOsnnecbck 2024 11:00pmNovember 2024 9:31am Immunizations Immunization Event Date Not Given Reason Dose Number Architect Intern Lot Number Reason(s) Given Vaccine Information Statement (VIS) Detail Administration Location Meningococcal B, OMV March 08, 2017 Meningococcal B, OMVOctober 2016COVID-19 mRNA-1273 (Moderna)May [id number] mRNA-1273 (Moderna)June [id number], TT and 5 pertussis antigensJune [id number], unspecifiedJanuary 1999DTap, unspecifiedMarch 1999DTap, unspecifiedJune 1999DTap, unspecifiedMarch 2000Quadrivalent Influenza (mdv)April 22, 2018UI998AD Quadrivalent Influenza (mdv)March 30, 2019Hepatitis A Vaccine, adol/ped, 2 doseAugust 0499RMHWM276EHSdwyiajgi A Vaccine, adol/ped, 2 doseFebruary 2012Hepatitis B Vaccine, adol/ped dosageJanuary 1999Hepatitis B Vaccine, adol/ped dosageMarch 1999Hepatitis B Vaccine, adol/ped dosage September 15, 2000Hepatitis B, RecombinantFebruary 2020Hib, unspecified formulationJanuary 1999Hib, unspecified formulationMarch 1999Hib, unspecified formulationMarch 2000Human Papillomavirus Vaccine, quadrivalent February 18, 20121359AAHPV, unspecified formulationOctober [id number], unspecified formulationFebruary 2012Inactivated Poliovirus VaccineJune 20047065J9462-0Jqovdxcleymqw THG4XTzcmkd 20111084C58349Csuxchuqaczfi MCV4O March 08, 2017Measles, Mumps, and Rubella Virus VaccineMarch 2000 Measles, Mumps, and Rubella Virus VaccineJune [id number], unspecified formulationJanuary 1999polio, unspecified formulationMarch 1999 polio, unspecified formulationMarch 2000Quadrivalent InfluenzaOctober 2017Quadrivalent InfluenzaSeptember 2018Quadrivalent InfluenzaOctober [id number], Diphtheria, Pertussis (Tdap)February 18, 2012 TI64X799LADtjpqzqbc Virus VaccineJune [id number] Virus Vaccine February 18, 20120591AE Relevant Diagnostic Tests and/or Laboratory Data Laboratory Results Test Collection Date/Time Result Date/Time Result Interpretation Reference Range Result Comment Performing Site Progesterone Level February 19, 2025 2:40pm February 19 2:40pm 0.8 ng/mL .Follicular phase 0.1 - 0.9 Luteal phase 1.8 - 23.9 Ovulation phase 0.1 - 12.0 First trimester 11.0 - 44.3 Second trimester 25.4 - 83.3 Third trimester 58.7 - 214.0 Postmenopausal 0.0 - 0.1Performed at: [facility] [address] [id number] Director: Ajit Reyes PhD, Phone: [phone] Chorionic Gonadotropin, QuantAucarlsbad medical centert 2024 2:40pm February 19, 2025 2:40pm<1 mIU/mL5-50 0.2-1 KBVJ27-557 1-2 AYNZX677-7,000 2-3 QEZWY960-36,000 3-4 WEEKS1,000-50,000 4-5 WEEKS10,000-100,000 5-6 WEEKS15,000- 200,000 6-8 WEEKS10,000-100,000 2-3 MONTHSReference Lab Test Patient AgeAugust 2024 8:59amAugust 2024 8:59amNote.TESTS RESULT FLAG UNITS REF RANGE LAB Clinician Provided Cytology Information Source.............Cervix No. of containers..01 ThinPrep VialAge Ryan Hawk... FLAG LEGEND: L- Low Normal,H-High Normal,LL-Alert Low,HH-Alert High <-Panic Low,>-Panic High,A-Abnormal,AA-Critical Abnormal Performed at:01 =G [address] [address] Brynn Cook MD, Rmta-Mullerian HormoneSept2024 1:30pm March 28, 2025 1:30pm1.68 ng/mL.For assays employing antibodies, the possibility exists forinterference by heterophile antibodies in the samples.11.Sandrine Norton Interferences in Immunoassays - still a threat. Clin. Chem. 2000; 46: 4345-4304.This test was developed and its performance characteristicsdetermined by [facility]. It has not been cleared or approvedby the Food and Drug Administration.Reference Range:Females 20 - 25y: 1.23 -11.51Median 4.70AMH concentrations of >= 1.06 ng/mL is correlated with abetter response to ovarian stimulation, produced moreretrievable oocytes and higher odds of live accordingto Janny silveira al. Fertility and Sterility. 2010:94:2028-5199. The current AMH test method correlates withthe study method with a slope of 0.94.Females at risk of ovarian hyperstimulation syndrome orpolycystic ovarian syndrome (PCOS) may exhibit elevatedserum AMH concentrations. AMH levels from PCOS patientsmaybe 2 to 5 fold higher than age-appropriate referenceinterval values.Granulosa cell tumors of the ovary may secrete AMH alongwith other tumor markers. Elevated AMH is not specific formalignancy, and the assay should not be used exclusively todiagnose or exclude an AMH-secreting ovarian tumor.Performed at: ES - [facility] [address] [place], [place] [id number] Director: Rivera Hester MD, Phone: [phone] Chorionic Gonadotropin, Quant March 28, 2025 1:30pmSeptember 2024 1:30pm<1 mIU/mL5-50 0.2-1 BXEZ37-912 1-2 OZEGP141-4,000 2-3 KCOHZ476-05,000 3-4 WEEKS1,000-50,000 4-5 WEEKS10,000-100,000 5-6 WEEKS15,000-200,000 6-8 WEEKS10,000-100,000 2-3 MONTHS Thyroid Stimulating Hormone GenSept2024 1:30pmSept2024 1:30pm2.418 u[iU]/mL0.358-3.740Estimated Average GlucoseSept2024 1:30pmSept2024 1:30pm97 mg/dLBasophils # (Auto)March 28, 2025 1:30pmSeptember 2024 1:30pm0.1 10 3/uL0.0-0.1Progesterone Level May 14, 2025 10:51amNovember 2024 10:51am18.8 ng/mL.Follicular phase 0.1 - 0.9 Luteal phase 1.8 - 23.9 Ovulation phase 0.1 - 12.0 First trimester 11.0 - 44.3 Second trimester 25.4 - 83.3 Third trimester 58.7 - 214.0 Postmenopausal 0.0 - 0.1Performed at: CB - [facility] [address] [place], [place] [id number] Director: Ajit Reyes PhD, Phone: [phone] Genotype SourceAugust 2024 8:59amAugust 2024 8:59amNote.TESTS RESULT FLAG UNITS REF RANGE LAB DIAGNOSIS: 02 NEGATIVE FOR INTRAEPITHELIAL LESION OR MALIGNANCY.Specimen adequacy: 02 Satisfactory forevaluation. No endocervical component is identified.Performed by: 02 Dahiana Amador [employer] ([facility]). 02Note: Note 03 The Pap smear is a screening test designed to aid in the detection of premalignant and malignant conditions of the uterine cervix. It is not a diagnostic procedure and should notbe used as the sole means of detecting cervical cancer. Both false-positive and false-negative reports do occur.Test Methodology: Note 03 This liquid based ThinPrep(R) pap test was screened with the use of an image guided system.. 02 The HPV DNA reflex criteria were not met with this specimen result therefore, no HPV testing was performed. FLAG LEGEND: L-Low Normal,H-High Normal,LL-Alert Low,HH-Alert High <-Panic Low,>- Panic High,A-Abnormal,AA-Critical Abnormal Performed at:02 [facility] [place] [facility] [address] [place] [address] Yue GALLAGHER, [address] [address] Brynn Cook MD, Mcksigoci at: =G - [facility] [address] [id number] Director: Brynn Cook MD, Phone: [phone] at: [facility] [address] [place], [place] [id number] Director: Kevin Mariano MD, Phone: [phone] W6vIlebswpmp2024 1:30pmSeptember 2024 1:30pm5.0 %4.5-6.2ADA RECOMMENDED LIMIT 4.0 - 6.0ADA THERAPEUTIC TARGET < 7.0ACTION SUGGESTED> 7.0Basophils (%) (Auto) March 28, 2025 1:30pmSept2024 1:30pm0.5 %0.2-2.0Eosinophils # (Auto)March 28, 2025 1:30pmSept2024 1:30pm0.1 10 3/uL0.0-0.7 Eosinophils (%) (Auto)March 28, 2025 1:30pmSept2024 1:30pm1.0 %0.9-7.0HematocritSeptember 2024 1:30pmSept2024 1:30pm37.7 % 36.0-48.0HemoglobinSept2024 1:30pmSept2024 1:30pm13.3 g/dL12.0-16.0Immature Granulocyte # (Auto)March 28, 2025 1:30pmSept2024 1:30pm0.05 10 3/uLAbove high normal0.00-0.03Immature Granulocyte % (Auto)March 28, 2025 1:30pmSept2024 1:30pm0.5 %0.0-0.5 Lymphocytes # (Auto)March 28, 2025 1:30pmSept2024 1:30pm3.1 10 3/uL1.2-3.8Lymphocytes (%) (Auto)March 28, 2025 1:30pmSept2024 1:30pm30.1 %20.5-60.0Mean Corpuscular HemoglobinSept2024 1:30pm March 28, 2025 1:30pm31.3 pg26.7-34.0Mean Corpuscular Hemoglobin Concent March 28, 2025 1:30pmSept2024 1:30pm35.3 g/dLAbove high normal 29.9-35.2Mean Corpuscular VolumeSept2024 1:30pmSept2024 1:30pm88.7 fL81.0-99.0Monocytes # (Auto)March 28, 2025 1:30pmSept2024 1:30pm0.7 10 3/uL0.3-0.8Monocytes (%) (Auto)March 28, 2025 1:30pmSept2024 1:30pm7.1 %1.7-12.0Mean Platelet VolumeSept2024 1:30pmSept2024 1:30pm11.1 fL9.5-13.5Neutrophils # (Auto) March 28, 2025 1:30pmSept2024 1:30pm6.3 10 3/uL1.4-6.5 Neutrophils (%) (Auto)March 28, 2025 1:30pmSept2024 1:30pm60.8 %43.0-75.0Platelet CountSept2024 1:30pmSept2024 1:30pm 276 10 3/gL474-111Tno Blood CountSept2024 1:30pmSept2024 1:30pm4.25 10 6/uL4.20-5.40Red Cell Distribution WidthSept2024 1:30pmSept2024 1:30pm11.9 %11.0-15.0Corrected White Blood Count March 28, 2025 1:30pmSept2024 1:30pm10.3 10 3/uL4.0-11.0 Vital Signs Vital Reading Result Reference Range Collection Date/Time Height 63 [in_i] March 08, 2025 8:16abKvhebo776.87 kgAugust 2024 8:01amBody Temperature 98 [degF]97.6-99.0August 2024 8:01amHeart Wvoi004 /yur31-340Zgqjkn 2024 8:01amRespiratory rate18 /bkk34-61Lsrgny 28th, 2025 8:01amOxygen saturation by Pulse nyfugitr76 %95-100Augus2024 8:01amBP Wxfadmdw100 mm[Hg]100-140 March 08, 2025 8:01amBP Fyqlsbnum56 mm[Hg]60-100gus2024 8:01amBMI (Body Mass Index)40.5 kg/u1Bdlotp 2024 8:79myQnwpoy69 [in_i]April 09, 2025 10:00yhFwgnzk680.51 kgSept2024 10:51amHeart Rate57 /min 60-100pt2024 10:51amRespiratory rate16 /auj06-65Nrchgnlaj 29th, 2025 10:51amOxygen saturation by Pulse rkcemfzn52 %95-100Sept2024 10:51amBP Jyivwzvv609 mm[Hg]100-140Sept2024 10:51amBP Zqydgwdrz97 mm[Hg]60-100Sept2024 10:51amBMI (Body Mass Index)40.0 kg/a0Tevcfgqvw2024 10:83tcQvapgz56 [in_i]May 15, 2025 9:57tbRbknhn069.51 kg May 15, 2025 9:27amBody Vcxzvqwilce86.4 [degF]97.6-99.0May 15, 2025 9:27amHeart Rate93 /dwz34-371Veotetvj2024 9:27amRespiratory rate18 /min 12-2024 9:27amOxygen saturation by Pulse wwquvjtf71 %95-100 May 15, 2025 9:27amBP Rzicfivw227 mm[Hg]100-140Nov2024 9:27amBP Gkbmlyzin78 mm[Hg]60-100May 15, 2025 9:27amBMI (Body Mass Index)40.0 kg/f4Migcbitl2024 9:27am Advance Directives Advance Directive Response Recorded Date/ Time Advance Directives No August 8:54am Insurance Providers Guarantor Patrica Baltazar Address [address] [facility] [address]Picijkf Info.Home Phone: Payer Group Member ID Coverage Type Subscriber Relationship to Subscriber Effective Date Expiration Date O Id: [id number] Bhavani Baltazar Id: [id number] [address] [facility] [address] Home Phone: Email: [email or web address] HoldingsSelKenneth MACHADO [id number] C Smith Id: [id number] [address] [facility] [address] Home Phone: Email: [email or web address] Encounter Location(s) Arrival/Admit Date Discharge/Departure Date Discharge/Departure Disposition Provider(s) Non-patient / Non-visit -[facility] ugust 2024 3:40pm Braden Cortes-patient / [facility] 2:15pmLizet Cruz-patient / Ojn-xxvih-Lfsfr [facility] March 05, 2025 9:59amCANDI Gong-patient / Llz-azgjh-[facility] 2024 9:41amMartha CoenDeparted Physician/Provider Office Visit-[facility]2024 8:53amAugust 2024 9:30amDischarged to home care or self care (routine discharge)Vilma Russo-patient / Kwo-smawi-Suabu [facility] 2024 2:30pmCorey LinnzioDeparted Physician/Provider [facility] 2024 1:38pmSept2024 2:32pmDischarged to home care or self care (routine discharge)Genie Hale , MHUZ-OMS-VCiz- patient / Geb-wscqs-Yldeu [facility] 2024 10:51amCorey FazioDeparted Physician/Provider Office Visit-[facility] May 15, 2025 9:24amNovember 2024 9:51amDischarged to home care or self care (routine discharge)Vilma Russo DO Recent Diagnosis Onset Date Admit Date Migraine headache Unknown March 08, 025 8:53am History of seizures as a child Unknown S eptember 2024 1:38pm Migraine without aura and wi thout status migrainosus, not intractable Unknown April 09, 2025 1:38 pm Assessments Diagnosis Onset Date Resolution Status Admit Date Migraine headache acuteAugust 2024 8:53amHistory of seizures as a childchronicSeptember 2024 1:38pmMigraine without aura and without status migrainosus, not intractablechronicSeptember 2024 1:38pm Plan of Treatment Author Esteban Lane [facility] 2024 8:26amPt needs to call Neuro again for appt - last seen 2023? Continue with current meds. Author Genie Hale [facility] 2024 8:08pmMs. Giovanny is a 24-year-old female with longstanding history of headaches. It is my impression that the patient has migraine without aura. She reports having approximately 2-3 headaches per month which seem most clinically consistent with this diagnosis. She has tried and failed amitriptyline and topiramate previously for migraine management. She is currently taking verapamil ER 180 mg daily and sumatriptan 100 mg PRN and believes her migraines are generally well managed on this regimen. The patient did have 1 migraine on 03/06/2025 that was reportedly more severe than her usual migraines. It originated in the bilateral frontal region which is typical for her migraines but then radiated to involve the entire head and neck. She also reports some pain radiating down her spine at the time. She denies fever or chills. She was evaluated at [facility] for these symptoms at which time she states her NIH score was 0, and no intracranial imaging was obtained. She was administered diphenhydramine, ketorolac, metoclopramide, and IV normal saline with significant improvement in symptoms. She was discharged home. Neurologic exam in the office today is unremarkable, and the patient denies spine pain. She denies progressively worsening headaches or any red flag symptoms today. PLAN: - Continue verapamil ER 180 mg mouth daily for migraine prevention - Continue sumatriptan 100 mg mouth as needed for migraine . Proper use discussed. Take no more than 2 doses in 24 hours - I provided the patient with samples of Nurtec 75 mg ODT at today's appointment. I advised the patient that she may try Nurtec in the future if she has a migraine that is not effectively relieved by sumatriptan. She verbalizes understanding. I advised the patient to take no more than 1 dose of Nurtec in 24 hours. I counseled her on possible adverse effects and proper use. She verbalizes understanding - Try to ensure adequate hydration, adequate sleep, stress management, and regular physical exercise as tolerated - Follow up closely with primary care provider for management of anxiety, as this is a common migraine trigger - I will ask staff to obtain records from the patient's emergency department visit at [facility] on 03/06/2025 for review The patient reports a history of seizures as a child. She estimates she was taken off of antiepileptic medication in 4th grade and denies any clear or definitive seizures since the age of 8 years. MRI of the brain on 05/24/2020 was unremarkable and did not identify epileptogenic focus. PLAN: - Monitor clinically The patient states she is currently having fertility issues and following with her OBGYN and PCP for management. She has been diagnosed with an ovarian disorder. I recommended the patient continue to follow closely with her OBGYN and PCP for this. I also advised the patient to promptly notify our office if she becomes in the future, as not all prescription migraine medications are safe to continue during and may need to be discontinued due to harmful effects. She verbalizes understanding. Diagnoses and treatment plan discussed. The patient and her verbalized understanding and are agreeable to the plan. All questions answered. Future Tests Future scheduled test information is unavailable Pending Tests Pending diagnostic test information is unavailable Future Visits Future appointment information is unavailable Future Procedures Future procedure information is unavailable Future Medications Future medication information is unavailable Patient Instructions Patient instructions are unavailable
--- OUTSIDE RECORDS SUMMARY | 2025-05-22 09:27 | XMS_ITS | Encounter Summary ---
Author Organization [facility] Address [address] [place] [address] Care Team Providers Care Plumbing Warehouse Helper Name Role Phone Esteban Lane MD Primary Care Provider [phone] Encounter Details DateTypeDepartmentCare Team (Latest Contact Info)Phuydgoldfb42/03/2025Clinisync Result Encounter [facility] External Department Unsolicited Braden Pinzon, DO [address] [facility] [place] [address] Social History Tobacco UseTypesPacks/DayYears UsedDateSmoking Tobacco: NeverSmokeless Tobacco: NeverAlcohol UseStandard Drinks/WeekCommentsNot Currently0 (1 standard drink = 0.6 oz pure alcohol)caffeine: 2-3 cups per dayCommentsUnknownSex and Gender InformationValueDate RecordedSex Assigned at BirthNot on fileLegal Sex Mvrlmk5509/23/2022 6:59 PM EDTGender IdentityNot on fileSexual OrientationNot on filedocumented as of this encounter Plan of Treatment DateTypeDepartmentCare Team (Latest Contact Info)Iqnscaxcvka46/11/2026 10:50 AM EDTOffice Visit [facility] [address] [facility] [address] [place] [phone] Kristen Fang, WINDOWS SERVER SUPPORT TECHNICIAN-C S S REPRESENTATIVE [address] [place], [place] [phone] documented as of this encounter Procedures Procedure NamePriorityDate/TimeAssociated DiagnosisCommentsALL PROGESTERONE Axmztua86/09/2024 10:51 AM EST documented in this encounter Results * ALL PROGESTERONE (05/14/2025 10:51 AM EST)ComponentValueRef RangeTest Method Analysis TimePerformed AtPathologist RtcguhtclDBZRPTBNLYVV76.8. ng/mLTBH Comment: ? Follicular phase ? 0.1 - ?? 0.9 ? Luteal phase ? 1.8 - ??23.9 ? Ovulation phase ?0.1 - ??12.0 ?First trimester ?11.0 - ??44.3 ?Second trimester ?? 25.4 - ??83.3 ?Third trimester ?58.7 - 214.0 ? Postmenopausal ? 0.0 - ?? 0.1 Performed at: ??CB - [facility] [place] [address] [place], [place] ??[id number] Manager Harbor: Ajit Reyes PhD, Phone: ??[phone] Specimen (Source)Anatomical Location / LateralityCollection Method / Volume Collection TimeReceived Time05/14/2025 10:51 AM EST05/14/2025 11:06 AM EST Narrative [facility] - 05/15/2025 4:07 AM EST Authorizing ProviderResult TypeResult StatusCorey Alberta DOCLINISYNCFinal Result Performing OrganizationAddressCity/State/ZIP CodePhone Number [facility]INIS[facility] documented in this encounter Visit Diagnoses Not on filedocumented in this encounter Care Teams Team MemberRelationshipSpecialtyStart DateEnd Date Esteban Lane MD [address] [place] [address] [address] PCP - GeneralFamily Medicine07/23/23documented as of this encounter
--- OUTSIDE RECORDS SUMMARY | 2025-05-22 09:28 | XMS_ITS | Clinical Summary ---
Author Organization [facility] Address [address] [place] [address] Care Team Providers Care Yard Rigger Name Role Phone Esteban Lane MD Primary Care Provider [phone] Allergies Active AllergyReactionsCriticalityNoted DateCommentsPenicillinsRash,UnknownLow 07/23/2023 Medications MedicationSigDispense QuantityRefillsLast FilledStart DateEnd DateStatus SUMAtriptan (Imitrex) 100 MG tablet Take 100 mg by mouth 1 (one) time if [id number] MV-Min-Fe Fum-FA-DHA ( 1 PO) Take 1 [...] BY MOUTH EVERY DAY 84 tablet 5Active letrozole (Femara) 2.5 MG chemo tablet Indications:Amenorrhea,Dysfunctional uterine bleeding,Anovulation,Irregular mensesTake 3 tablets (7.5 mg total) by mouth Daily for 5 days. 15 tablet 515Active Active Problems ProblemNoted DateDiagnosed DateFemale hdjsadrgeyp17/21/2025 Encounters DateTypeDepartmentCare IjtdJhpsxjncvra44/10/2025Telephone [facility] [address] [place] [address] Suzanna Lin LPN 5Clinisync Result Encounter [facility] External Department Unsolicited Braden Pinzon, DO 04/24/2025Telephone [facility] [address] [place] [address] Suzanna Lin LPN 04/17/2025Refill [facility] [address] [place] [address] Monse rOosco PA Xcomvpkecb24/28/2025Refill [facility] [address] [place] [address] Braden Pinzon DO Female infertility; Pgewembeghw86/22/2025 2:30 PM EDTAncillary Procedure [facility] [address] [place] [address] Xzxggwojeb31/17/2025 1:20 PM EDTOffice Visit [facility] [address] [place] [address] Monse Orosco PA Follow-up encounter involving medication; Rqdkowwiov77/17/2025linisync Result Encounter [facility] External Department Unsolicited Braden Pinzon, DO 03/28/2025amboo flowsheet [facility] [address] [place] [address] Monse Orosco PA 03/26/2025Telephone [facility] [address] [place] [address] Krissy Esparza MA 03/13/2025Orders Only [facility] [address] [place] [address] Pamela Murphy LPN 03/05/2025 9:40 AM EDTOffice Visit [facility] [address] [facility] [place] [place] [address] Braden Pinzon, Dysfunctional uterine bleeding (Primary Dx); Well woman exam with routine gynecological exam; Encounter to discuss test iwdcwqb4303/05/2025linisync Result Encounter [facility] External Department Unsolicited Cynthia Kaufman NP 03/05/2025amboo flowsheet [facility] [address] [facility] [place] [address] Braden Pinzon, 02/23/2025Telephone [facility] [address] [place] [address] Pamela Murphy LPN 02/21/2025Results Follow-Up [facility] [address] [facility] [place] [address] Suzanna Lin LPN [facility] PREG QUANT HCG, ALL BFFUAAEVQLUA07/11/2025linisync Result Encounter [facility] External Department Unsolicited Braden Pinzon, 02/19/2025Telephone [facility] [address] [place] [address] Pamela Murphy LPN from Last 3 Months Family History Medical [...] Last Filed Vital Signs Vital SignReadingTime TakenCommentsBlood Kyqfmngp558/7403/28/2025 1:17 PM EDT Tmkuu40662 5:04 PM OTCAdtrvtdmqfm75.2 ??C (99 ??F)07/23/2023 5:04 PM EST Respiratory Rate--Oxygen Ryublnpmmx80%07/23/2023 5:04 PM ESTInhaled Oxygen Concentration--Zyiqbe992 kg (230 lb 6.4 oz)03/28/2025 1:17 PM CWVGjdqaz724.5 cm (5' 2 )08/28/2022 12:00 PM ESTBody Mass Index42.14008/28/2022 12:00 PM EST Plan of Treatment DateTypeDepartmentCare Team (Latest Contact Info)Zezvfxfartl58/11/2026 10:50 AM EDTOffice Visit [facility] [address] [place] [address] Kristen Fang APRN-OPERATING ROOM SCHEDULER [address] [place] [address] Procedures Procedure NamePriorityDate/TimeAssociated DiagnosisCommentsALL PROGESTERONE Gpeduzv7305/14/2025 10:51 AM EST US PELVIC COMPLETE W/ ECSkjkzus24/22/2025 3:05 PM EDT Amenorrhea ALL ANTI-MULLERIAN TBFSLZJJkcarnh82/17/2025 2:30 PM EDT [facility] PREG QUANT MKLQpnwnno17/17/2025 2:30 PM EDT ALL THYROID STIM EFFFANUEyfjfei74/17/2025 2:30 PM EDT MLR HEMOGLOBIN J2NGgeyvnr45/17/2025 2:30 PM EDT ALL CBC WITH AUTO JBRNRgbqdco02/17/2025 2:30 PM EDT POCT , CPLDXFgytpog18/17/2025 1:31 PM EDT Amenorrhea POCT URINALYSIS VJWMHQMARdtjden77/17/2025 1:27 PM EDT Amenorrhea IGP,APTIMA HPV,AGE RPOPOcieawf31/25/2025 9:59 AM EDT PAP JEJLQGwblsax78/25/2025 12:00 AM EDTALL PWSRALLGKVZGZbyghsv79/11/2025 3:40 PM EDT TB[facility] PREG QUANT JHYXayuyog03/11/2025 3:40 PM EDT from Last 3 Months Results * ALL PROGESTERONE (05/14/2025 10:51 AM EST) Only the most recent of2 resultswithin the time period is included. ComponentValueRef RangeTest MethodAnalysis TimePerformed AtPathologist Signature ZUQRJEBHZHLT40.8. ng/mLTBHComment: ? Follicular phase ? 0.1 - ?? 0.9 ? Luteal phase ? 1.8 - ??23.9 ? Ovulation phase ?0.1 - ??12.0 ?First trimester ?11.0 - ??44.3 ?Second trimester ?? 25.4 - ??83.3 ?Third trimester ?58.7 - 214.0 ? Postmenopausal ? 0.0 - ?? 0.1 Performed at: ??CB - [facility] [place] [address] [facility], [place], [place] ??[id number] Terminal System Operator: Ajit Reyes PhD, Phone: ??[phone] Specimen (Source)Anatomical Location / LateralityCollection Method / Volume Collection TimeReceived Time05/14/2025 10:51 AM EST05/14/2025 11:06 AM EST Narrative [facility] - 05/15/2025 4:07 AM EST Authorizing ProviderResult TypeResult StatusCorey Alberta DOCLINISYNCFinal Result Performing OrganizationAddressCity/State/[facility] CampusPhone Number CLINISYNC TB * Pelvis w/ TV (04/02/2025 3:05 PM EDT)Anatomical [...] Leon MD Authorizing ProviderResult TypeResult StatusCorey Alberta [facility] US PROCEDURESFinal Result * [facility] PREG QUANT HCG [...] Alberta DOCLINISYNCFinal Result Performing OrganizationAddressCity/State/ZIP CodePhone Number [facility] * MLR HEMOGLOBIN A1C (03/28/2025 2:30 PM EDT)ComponentValueRef RangeTest Method Analysis TimePerformed AtPathologist SignatureGLYCOHEMOGLOBIN A1C5.04.5 - 6.2 %TBHComment: ADA RECOMMENDED LIMIT 4.0 - 6.0 ADA THERAPEUTIC TARGET < 7.0 ACTION SUGGESTED > 7.0 ESTIMATED AVERAGE MXXQSCZ55jr/dLTBHSpecimen (Source)Anatomical Location / LateralityCollection Method / VolumeCollection TimeReceived Time03/28/2025 2:30 PM EDT03/28/2025 2:32 PM EDT Narrative [facility] - 03/28/2025 3:31 PM EDT Authorizing ProviderResult TypeResult StatusCorey Alberta DOCLINISYNCFinal Result Performing OrganizationAddJefferson Hospitalty/State/ZIP CodePhone Number [facility] * ALL THYROID STIM HORMONE (03/28/2025 2:30 PM EDT)ComponentValueRef RangeTest MethodAnalysis TimePerformed AtPathologist SignatureTHYROID STIMULATING HORMONE2.4180.358 - 3.740 uIU/mLTBHSpecimen (Source)Anatomical Location / LateralityCollection Method / VolumeCollection TimeReceived Time03/28/2025 2:30 PM EDT03/28/2025 2:32 PM EDT Narrative [facility] - 03/28/2025 3:32 PM EDT Authorizing ProviderResult TypeResult StatusCorey Alberta DOCLINISYNCFinal Result Performing OrganizationAddTitusville [facility]/State/ZIP CodePhone Number [facility] * (ABNORMAL) ALL CBC WITH AUTO DIFF (03/28/2025 2:30 PM EDT)ComponentValueRef RangeTest MethodAnalysis TimePerformed AtPathologist SignatureTBH WBC10.34.0 - 11.0 10 3/uLTBHTBH RBC4.254.20 - 5.40 10 6/uLTBHTBH HGB13.312.0 - 16.0 g/dLTBH TBH HCT37.736.0 - 48.0 %TBHTBH MCV88.781.0 - 99.0 fLTBHTBH MCH31.326.7 - 34.0 pgTBHTBH MCHC35.3(H)29.9 - 35.2 g/dLTBHTBH RDW11.911.0 - 15.0 %TBHTBH BRW683 150 - 450 10 3/uLTBHTBH MPV11.19.5 - [...] Alberta DOCLINISYNCFinal Result Performing OrganizationAddressCity/State/ZIP CodePhone Number [facility] * ALL ANTI-MULLERIAN HORMONE (03/28/2025 2:30 PM EDT)ComponentValueRef RangeTest MethodAnalysis TimePerformed AtPathologist SignatureANTI-MULLERIAN HORMONE (AMH)1.68. ng/mLTBHComment: For assays employing antibodies, the possibility exists for interference by heterophile antibodies in the samples.1 1.Sandrine Norton ??Interferences in Immunoassays - still a threat. Clin. Chem. 2000; 46: 2457-2565. This test was developed and its performance characteristics determined by [employer]. It has not been cleared or approved by the Food and Drug Administration. Reference Range: Females 20 - 25y: 1.23 - 11.51 Median ??4.70 AMH concentrations of >= 1.06 ng/mL is correlated with a better response to ovarian stimulation, produced more retrievable oocytes and higher odds of live according to Janny et al. ??Fertility and Sterility. 2010: 94:3831-7934. ??The current AMH test method correlates with [...] exclude an AMH-secreting ovarian tumor. Performed at: ??[facility] [address] [place] [id number] Terminal System Operator: Rivera Hester MD, Phone: ??[phone] Specimen (Source)Anatomical Location / LateralityCollection Method / Volume Collection TimeReceived Time03/28/2025 2:30 PM EDT03/28/2025 2:32 PM EDT Narrative [facility] - 03/31/2025 2:11 AM EDT Authorizing ProviderResult TypeResult StatusCoreharika Pinzon DOCLINISYNCFinal Result Performing OrganizationAddressCity/State/ZIP CodePhone Number [facility] * POCT , urine manually resulted (03/28/2025 1:31 PM EDT)ComponentValue Ref RangeTest MethodAnalysis TimePerformed AtPathologist SignaturePreg Test, UrNegativeNegativeSpecimen (Source)Anatomical Location / LateralityCollection Method / VolumeCollection TimeReceived SftlFoajv63/17/2025 1:31 PM EDT Narrative Authorizing ProviderResult TypeResult StatusFederal Medical Center, DevensOINT OF CARE TEST ENTER/EDIT ORDERABLESFinal Result * (ABNORMAL) POCT urinalysis dipstick manually resulted (03/28/2025 1:27 PM EDT) ComponentValueRef RangeTest MethodAnalysis TimePerformed AtPathologist SignatureColor, UAYellowClarity, UAClearGlucose, UANegativeNegative - 1999(110) ++++ mg/dLBilirubin, UANegativeNegative - 4(70) +++ mg/dLKetones, UA NegativeNegative - 160(16) ++++ mg/dLSpec Grav, UA1.0151 - 1.03Blood, UA PositiveNegative - 50 Brendan/mcLpH, UA6.55 - 9Protein, UAPositiveNegative - 1999(20) ++++ mg/dLUrobilinogen, UA1.00.2 - 12 mg/dLLeukocytes, UAPositive Negative - 500+++ Shakira/mcLNitrite, UANegativeNegative - PositiveSpecimen (Source)Anatomical Location / LateralityCollection Method / VolumeCollection TimeReceived BsfgNbfic54/17/2025 1:27 PM EDT Narrative Authorizing ProviderResult TypeResult StatusCommunity [facility] Systems TEST ENTER/EDIT ORDERABLESFinal Result * IGP,APTIMA HPV,AGE [...] at: 01 =G ?[facility] [place] ?? [address] [place] ??[phone] ?? Brynn Cook MD, IGP, RFX APTIMA HPV ASCUNote.TBHComment: ?? TESTS ? RESULT ??FLAG ??UNITS ?REF RANGE ??LAB DIAGNOSIS: ?02 ?? NEGATIVE FOR INTRAEPITHELIAL LESION OR MALIGNANCY. Specimen adequacy: ?02 ?? Satisfactory for evaluation. No endocervical component is identified. Performed by: ? 02 ?? Dahiana Amador, Joint Creaser ([facility]) . ? 02 Note: ? Note ?03 [...] <-Panic Low,>-Panic High,A-Abnormal,AA-Critical Abnormal Performed at: 02 [facility] ?? [address] [place], [place] ??[address] ?? Kevin Mariano MD, 03 WB ?[facility] [place] ?? [address] [facility] [address] [place] [address] ?? Brynn Cook MD, Performed at: ??=G - [facility] [place] [address] [place], [place], [place] ??[id number] Terminal System Operator: Brynn Cook MD, Phone: ??[phone] Performed at: ??KWCYT - [facility] [place] [address] [address] [place], [place] ??[id number] Terminal System Operator: Kevin Mariano MD, Phone: ??[phone] Specimen (Source)Anatomical Location / LateralityCollection Method / Volume Collection TimeReceived Time03/05/2025 9:59 AM EDT03/05/2025 3:43 PM EDT Narrative [facility] - 03/09/2025 5:09 PM EDT BRUSH-SPATULA CERVIX Authorizing ProviderResult TypeResult StatusCynthia Kaufman NPLAB BLOOD ORDERABLESFinal ResultPerforming OrganizationAddressCity/State/ZIP CodePhone Number [facility] * Pap Smear (03/05/2025 12:00 AM EDT)Specimen (Source)Anatomical Location / LateralityCollection Method / VolumeCollection TimeReceived TimeSwabCervical swab / Unknown Narrative Authorizing ProviderResult TypeResult StatusKrsusan Connorerly NPLAB CYTOLOGY ORDERABLESFinal ResultPerforming OrganizationAddressCity/State/ZIP CodePhone Number EXTERNAL LAB from Last 3 Months Insurance Care Teams Team MemberRelationshipSpecialtyStart DateEnd Date Esteban Lane MD [address] [place] [phone] PCP - [facility] Medicine07/23/23
--- OUTSIDE RECORDS SUMMARY | 2025-05-22 09:28 | XMS_ITS | Clinical Summary ---
Author Organization [facility] Address [address] [place] [address] Phone Care Team Providers Care Caregiver Services Home Name Role Phone Unavailable Primary Care Provider Unavailabl e Social History Tobacco UseTypesPacks/DayYears UsedDateSmoking Tobacco: Never Assessed CommentsUnknownSex and Gender InformationValueDate RecordedSex Assigned at Not on fileLegal LnwLaxejv35/25/2022 8:29 PM ESTGender IdentityNot on fileSexual OrientationNot on file Plan of Treatment Not on file
--- OUTSIDE RECORDS SUMMARY | 2025-05-22 09:28 | XMS_ITS | Encounter Summary ---
Author Organization [facility] Address [address] [place] [address] Care Team Providers Care Manager Wound Care Name Role Phone Esteban Lane MD Primary Care Provider [phone] Encounter Details DateTypeDepartmentCare Team (Latest Contact Info)Jdpoubsatyh38/10/2025Telephone [facility] [address] [place] [address] [place] [address] Suzanna Lin LPN Social History Tobacco UseTypesPacks/DayYears UsedDateSmoking Tobacco: NeverSmokeless Tobacco: NeverAlcohol UseStandard Drinks/WeekCommentsNot Currently0 (1 standard drink = 0.6 oz pure alcohol)caffeine: 2-3 cups per dayCommentsUnknownSex and Gender InformationValueDate RecordedSex Assigned at BirthNot on fileLegal Sex Bnumfs7409/23/2022 6:59 PM EDTGender IdentityNot on fileSexual OrientationNot on filedocumented as of this encounter Miscellaneous Notes * Telephone Encounter - Suzanna Lin LPN - 05/21/2025 4:37 PM EST 08:42am 05/21/25 Patient called and LMOM stating that she started her cycle today and would like toknow if she will be placed on Femara again or switch to Clomid. Patient request call back. Discussed medication with Dr. Pinzon and he would like to stick with Femara 7.5mg since ovulation with last cycle. Patient will be notified. 4:50pm Called patient and informed her of staying on Femara. PVU but also had a concern as she knows that her number was good for Day 22 progesterone. Patient stated that she had a normal cycle when she found out she was last time and had clots as well. Informed patient that HCG order would be sent to [facility] and H Scheduling. PVU Suzanna Conway LPN Patient will reach out tomorrow to inquire about results. documented in this encounter Plan of Treatment DateTypeDepartmentCare Team (Latest Contact Info)Psazsxzumto81/11/2026 10:50 AM EDTOffice Visit [facility] [address] [place] [address] Kristen Fang APRN-CERTIFIED RESPIRATORY THERAPIST [address] [place] [address] NameTypePriorityAssociated DiagnosesOrder SchedulehCG, quantitativeLabRoutine Amenorrhea Dysfunctional uterine bleeding Anovulation Irregular menses Expected: 05/21/2025 (Approximate), Expires: 05/21/2026documented as of this encounter Visit Diagnoses Diagnosis Amenorrhea Absence of menstruation Dysfunctional uterine bleeding Other disorder of menstruation and other abnormal bleeding from female genital tract Anovulation Female infertility associated with anovulation Irregular menses Irregular menstrual cycle documented in this encounter Care Teams Team MemberRelationshipSpecialtyStart DateEnd Date Esteban Lane MD [address] [place] [address] [address] [place] [address] PCP - GeneralFamily Medicine07/23/23documented as of this encounter
== END 2025-05-22 09:24 | disposition home or self-care (01) ==
LOC: LAB 09:25
PROVIDERS: PCP Family Medicine; Visit Provider Obstetrics & Gynecology
DX: N93.8 Other specified abnormal uterine and vaginal bleeding (principal); N91.2 Amenorrhea, unspecified; N97.0 Female infertility associated with anovulation; N92.6 Irregular menstruation, unspecified
CPT/HCPCS: 36415; 84702

== ENCOUNTER 2025-06-11 07:57 | Outpatient (OUT) | payer SELFPAY ==
--- OUTSIDE RECORDS SUMMARY | 2025-06-11 08:02 | XMS_ITS | Clinical Summary ---
Author Organization [facility] Address [address] [place] [address] Care Team Providers Care Plating Technician Name Role Phone Esteban Lane MD Primary Care Provider [phone] Allergies Active AllergyReactionsCriticalityNoted DateCommentsPenicillinsRash,UnknownLow 07/23/2023 Medications MedicationSigDispense QuantityRefillsLast FilledStart DateEnd DateStatus SUMAtriptan (Imitrex) 100 MG tablet Take 100 mg by mouth 1 (one) time if [id number] MV-Min-Fe Fum-FA-DHA ( 1 PO) Take 1 [...] mouth Daily for 5 days. 15 tablet 5107/26/2024Expired Active Problems ProblemNoted DateDiagnosed DateFemale myltxibjnam57/21/2025 Encounters DateTypeDepartmentCare TacuAeyyeoeuedb16/11/2025linisync Result Encounter [facility] External Department Unsolicited Braden Pinzon, DO 05/21/2025Telephone [facility] [address] [place] [address] Suzanna Lin, REGISTERED NURSE MIDWIFE 05/14/2025linisync Result Encounter [facility] External Department Unsolicited Braden Pinzon, DO 04/24/2025Telephone [facility] [address] [place] [place] [address] Suzanna Lin, REGISTERED NURSE MIDWIFE 04/17/2025Refill [facility] [address] [place] [place] [address] Monse Orosco PA Lmlkcmzosz34/28/2025Refill [facility] [address] [place] [address] Braden Pinzon, Female infertility; Lecltnemlkz85/22/2025 2:30 PM EDTAncillary Procedure [facility] [address] [place] [address] Qrxchdnyqm88/17/2025 1:20 PM EDTOffice Visit [facility] [address] [place] [place] [address] Monse Orosco PA Follow-up encounter involving medication; Offwfxcgzy80/17/2025linisync Result Encounter [facility] External Department Unsolicited Braden Pinzon, DO 03/28/2025amboo flowsheet [facility] [address] [place] [address] Monse Orosco PA 03/26/2025Telephone [facility] [address] [place] [address] Isaias Krissy, MA 03/13/2025Orders Only [facility] [address] [place] [address] Jeffrey Pamela, REGI from Last 3 Months Family History [...] Last Filed Vital Signs Vital SignReadingTime TakenCommentsBlood Bqpzpqgd287/7409 1:17 PM EDT Wdwes29834 5:04 PM NNGCvmlbnbugvk16.2 ??C (99 ??F)07/23/2023 5:04 PM EST Respiratory Rate--Oxygen Mrppsrotcb23%07/23/2023 5:04 PM ESTInhaled Oxygen Concentration--Etpkns200 kg (230 lb 6.4 oz)03/28/2025 1:17 PM XKJGyzvsw906.5 cm (5' 2 )08/28/2022 12:00 PM ESTBody Mass Index42.14008/28/2022 12:00 PM EST Plan of Treatment DateTypeDepartmentCare Team (Latest Contact Info)Xugxsppkbmc46/11/2026 10:50 AM EDTOffice Visit [facility] [address] [place] [address] Kristen Fang, SPD MANAGER-PRICING STRATEGIST [address] [place] [address] Procedures Procedure NamePriorityDate/TimeAssociated DiagnosisCommentsTBH PREG QUANT HCG Favajzt1905/22/2025 9:51 AM EST ALL DWALQGTGDCTHNyffbxj41/03/2025 10:51 AM EST US PELVIC COMPLETE W/ USEeopaxb46/22/2025 3:05 PM EDT Amenorrhea ALL ANTI-MULLERIAN UVHENKCQlfhsur62/17/2025 2:30 PM EDT TBH PREG QUANT EHMSzdcods13/17/2025 2:30 PM EDT ALL THYROID STIM FKRLHQNXoeedih01/17/2025 2:30 PM EDT MLR HEMOGLOBIN Q2HKgimjej27/17/2025 2:30 PM EDT ALL CBC WITH AUTO GNXZPhztyew21/17/2025 2:30 PM EDT POCT , FEOEAAbqifto20/17/2025 1:31 PM EDT Amenorrhea POCT URINALYSIS HOTSUMCEIecfpji49/17/2025 1:27 PM EDT Amenorrhea from Last 3 Months Results * TB[facility] PREG QUANT HCG (05/22/2025 9:51 AM EST) Only the most recent of2 resultswithin the time period is included. ComponentValueRef RangeTest MethodAnalysis TimePerformed AtPathologist Signature HCG QUANTITATIVE<1mIU/mLTBHComment: 5-50 ? 0.2-1 WEEK 50-500 ? 1-2 WEEKS 100-5,000 ?2-3 WEEKS 500-10,000 ? 3-4 WEEKS 1,000-50,000 ?? 4-5 WEEKS 10,000-100,000 5-6 WEEKS 15,000-200,000 6-8 WEEKS 10,000-100,000 2-3 MONTHS Specimen (Source)Anatomical Location / LateralityCollection Method / Volume Collection TimeReceived Time05/22/2025 9:51 AM EST05/22/2025 9:53 AM EST Narrative CLINISYNC - 05/22/2025 10:25 AM EST Authorizing ProviderResult TypeResult StatusCorey Alberta DOCLINISYNCFinal Result Performing OrganizationAddressCity/State/ZIP CodePhone Number CLINIS[facility]NC [facility] * ALL PROGESTERONE (05/14/2025 10:51 AM EST)ComponentValueRef RangeTest Method Analysis TimePerformed AtPathologist VazeomtktFTBGTQMNXILM78.8. ng/mLTBH Comment: ? Follicular phase ? 0.1 - ?? 0.9 ? Luteal phase ? 1.8 - ??23.9 ? Ovulation phase ?0.1 - ??12.0 ?First trimester ?11.0 - ??44.3 ?Second trimester ?? 25.4 - ??83.3 ?Third trimester ?58.7 - 214.0 ? Postmenopausal ? 0.0 - ?? 0.1 Performed at: ??[facility] - [facility] [address] [place], [place] ??[id number] Conduit Reamer Operator: Ajit Reyes PhD, Phone: ??[phone] Specimen (Source)Anatomical Location / LateralityCollection Method / Volume Collection TimeReceived Time05/14/2025 10:51 AM EST05/14/2025 11:06 AM EST Narrative [facility]IN[facility]NC - 05/15/2025 4:07 AM EST Authorizing ProviderResult TypeResult StatusCorey Alberta DOCLINISYNCFinal Result Performing OrganizationAddressCity/State/ZIP CodePhone Number [facility] * US Pelvis w/ TV (04/02/2025 3:05 [...] Leon MD Authorizing ProviderResult TypeResult StatusCorey Alberta [facility] US PROCEDURESFinal Result * MLR HEMOGLOBIN A1C (03/28/2025 2:30 PM EDT)ComponentValueRef RangeTest Method Analysis TimePerformed AtPathologist SignatureGLYCOHEMOGLOBIN A1C5.04.5 - 6.2 %TBHComment: ADA RECOMMENDED LIMIT 4.0 - 6.0 ADA THERAPEUTIC TARGET < 7.0 ACTION SUGGESTED > 7.0 ESTIMATED AVERAGE XOYTPGL89wq/dLTBHSpecimen (Source)Anatomical Location / LateralityCollection Method / VolumeCollection TimeReceived Time03/28/2025 2:30 PM EDT03/28/2025 2:32 PM EDT Narrative CLINISYNC - 03/28/2025 3:31 PM EDT Authorizing ProviderResult TypeResult StatusCoreharika Pinzon DOCLINISYNCFinal Result Performing OrganizationAddressCity/State/ZIP CodePhone Number [facility] * ALL THYROID STIM HORMONE (03/28/2025 2:30 PM EDT)ComponentValueRef RangeTest MethodAnalysis TimePerformed AtPathologist SignatureTHYROID STIMULATING HORMONE2.4180.358 - 3.740 uIU/mLTBHSpecimen (Source)Anatomical Location / LateralityCollection Method / VolumeCollection TimeReceived Time03/28/2025 2:30 PM EDT03/28/2025 2:32 PM EDT Narrative CLINISYNC - 03/28/2025 3:32 PM EDT Authorizing ProviderResult TypeResult StatusCorey Alberta DOCLINISYNCFinal Result Performing OrganizationAddressCity/State/ZIP CodePhone Number [facility] * (ABNORMAL) ALL CBC WITH AUTO DIFF (03/28/2025 2:30 PM EDT)ComponentValueRef RangeTest MethodAnalysis TimePerformed AtPathologist SignatureTBH WBC10.34.0 - 11.0 10 3/uLTBHTBH RBC4.254.20 - 5.40 10 6/uLTBHTBH HGB13.312.0 - 16.0 g/dLTBH TBH HCT37.736.0 - 48.0 %TBHTBH MCV88.781.0 - 99.0 fLTBHTBH MCH31.326.7 - 34.0 pgTBHTBH MCHC35.3(H)29.9 - 35.2 g/dLTBHTBH RDW11.911.0 - 15.0 %TBHTBH KKI529 150 - 450 10 3/uLTBHTBH MPV11.19.5 - [...] Alberta DOCLINISYNCFinal Result Performing OrganizationAddressCity/State/ZIP CodePhone Number [facility] * ALL ANTI-MULLERIAN HORMONE (03/28/2025 2:30 PM EDT)ComponentValueRef RangeTest MethodAnalysis TimePerformed AtPathologist SignatureANTI-MULLERIAN HORMONE (AMH)1.68. ng/mLTBHComment: For assays employing antibodies, the possibility exists for interference by heterophile antibodies in the samples.1 1.Sandrine Norton ??Interferences in Immunoassays - still a threat. Clin. Chem. 2000; 46: 7399-0427. This test was developed and its performance characteristics determined by [facility]. It has not been cleared or approved by the Food and Drug Administration. Reference Range: Females 20 - 25y: 1.23 - 11.51 Median ??4.70 AMH concentrations of >= 1.06 ng/mL is correlated with a better response to ovarian stimulation, produced more retrievable oocytes and higher odds of live according to Janny et al. ??Fertility and Sterility. 2010: 94:2292-5345. ??The current AMH test method correlates with [...] exclude an AMH-secreting ovarian tumor. Performed at: ??[facility] [address] [place] [id number] Conduit Reamer Operator: Rivera Hester MD, Phone: ??[phone] Specimen (Source)Anatomical Location / LateralityCollection Method / Volume Collection TimeReceived Time03/28/2025 2:30 PM EDT03/28/2025 2:32 PM EDT Narrative CLINISYNC - 03/31/2025 2:11 AM EDT Authorizing ProviderResult TypeResult StatusCorey Alberta DOCLINISYNCFinal Result Performing OrganizationAddressCity/State/ZIP CodePhone Number CLINISYNC [facility] * POCT , urine manually resulted (03/28/2025 1:31 PM EDT)ComponentValue Ref RangeTest MethodAnalysis TimePerformed AtPathologist SignaturePreg Test, UrNegativeNegativeSpecimen (Source)Anatomical Location / LateralityCollection Method / VolumeCollection TimeReceived CkruGjcny26/17/2025 1:31 PM EDT Narrative Authorizing ProviderResult TypeResult StatusMonse Orosco PAPOINT OF CARE TEST ENTER/EDIT ORDERABLESFinal Result * [...] Location / LateralityCollection Method / VolumeCollection TimeReceived EjrqYzxom84/17/2025 1:27 PM EDT Narrative Authorizing ProviderResult TypeResult StatusAmy Ana Luisa PAPOINT OF CARE TEST ENTER/EDIT ORDERABLESFinal Result from Last 3 Months Insurance Care Teams Team MemberRelationshipSpecialtyStart DateEnd Date Esteban Lane MD [address] [place] [phone] [facility]
--- OUTSIDE RECORDS SUMMARY | 2025-06-11 08:02 | XMS_ITS | Clinical Summary ---
Author Organization [facility] Address [address] [place] [address] Phone Care Team Providers Care Senior Search Marketing Analyst Name Role Phone Unavailable Primary Care Provider Unavailabl e Social History Tobacco UseTypesPacks/DayYears UsedDateSmoking Tobacco: Never Assessed CommentsUnknownSex and Gender InformationValueDate RecordedSex Assigned at Not on fileLegal TsbOpnrks02/25/2022 8:29 PM ESTGender IdentityNot on fileSexual OrientationNot on file Plan of Treatment Not on file
== END 2025-06-11 07:58 | disposition home or self-care (01) ==
LOC: LAB 07:59
PROVIDERS: PCP Family Medicine; Visit Provider Obstetrics & Gynecology
DX: N97.0 Female infertility associated with anovulation (principal)
CPT/HCPCS: 36415; 84144

== ENCOUNTER 2025-07-04 09:07 | Outpatient (OUT) | payer SELFPAY ==
--- OUTSIDE RECORDS SUMMARY | 2025-07-04 09:13 | XMS_ITS | Clinical Summary ---
Author Organization [facility] Address [address] [place] [address] Care Team Providers Care Director College Name Role Phone Esteban Lane MD Primary Care Provider [phone] Allergies Active AllergyReactionsCriticalityNoted DateCommentsPenicillinsRash,UnknownLow 07/23/2023 Medications MedicationSigDispense QuantityRefillsLast FilledStart DateEnd DateStatus SUMAtriptan (Imitrex) 100 MG tablet Take 100 mg by mouth 1 (one) time if [id number] MV-Min-Fe Fum-FA-DHA ( 1 PO) Take 1 [...] mouth Daily for 5 days. 15 tablet 5108/21/2024Expired Active Problems ProblemNoted DateDiagnosed DateFemale twvetiyijrj19/21/2025 Encounters DateTypeDepartmentCare EkrkZhvppvgkzzb02/05/2025Telephone [facility] [address] [place] [address] Suzanna Lin, MACHINE SETTER SHEET METAL 5Clinisync Result Encounter [facility] External Department Unsolicited Braden Pinzon, DO 5Clinisync Result Encounter [facility] External Department Unsolicited Braden Piznon, DO 05/21/2025Telephone [facility] [address] [place] [address] Suzanna Lin, MACHINE SETTER SHEET METAL 5Clinisync Result Encounter [facility] External Department Unsolicited Braden Pinzon, DO 04/24/2025Telephone [facility] [address] [place] [address] Suzanna Lin, MACHINE SETTER SHEET METAL 04/17/2025Refill [facility] [address] [place] [address] Monse Orosco PA Bzsxjbfrih47/28/2025Refill [facility] [address] [place] [address] Braden Pinzon, DO Female infertility; Anovulationfrom Last 3 Months Family History Medical HistoryRelationNameCommentsNo [...] Last Filed Vital Signs Vital SignReadingTime TakenCommentsBlood Chqbeclw259/7409 1:17 PM EDT Irboq27509/06/2024 5:04 PM XGZArwirziqsjd14.2 ??C (99 ??F)07/23/2023 5:04 PM EST Respiratory Rate--Oxygen Ouksrynqwg21%07/23/2023 5:04 PM ESTInhaled Oxygen Concentration--Rqwobr353 kg (230 lb 6.4 oz)03/28/2025 1:17 PM YKRLebbvs658.5 cm (5' 2 )08/28/2022 12:00 PM ESTBody Mass Index42.14008/28/2022 12:00 PM EST Plan of Treatment DateTypeDepartmentCare Team (Latest Contact Info)Ymqcrihetfy61/11/2026 10:50 AM EDTOffice Visit [facility] [address] [place] [address] Kristen Fang, CLINICAL MARKETING MANAGER-STOCKROOM SUPERVISOR [address] [place] [address] Procedures Procedure NamePriorityDate/TimeAssociated DiagnosisCommentsALL PROGESTERONE Orhbrjx0806/11/2025 8:12 AM EST [facility] PREG QUANT KJPQzuasrm36/11/2025 9:51 AM EST ALL GCHIUWFLBCPDKgojewu50/03/2025 10:51 AM EST from Last 3 Months Results * ALL PROGESTERONE (06/11/2025 8:12 AM EST) Only the most recent of2 resultswithin the time period is included. ComponentValueRef RangeTest MethodAnalysis TimePerformed AtPathologist Signature PROGESTERONE2.5. ng/mLTBHComment: ? Follicular phase ? 0.1 - ?? 0.9 ? Luteal phase ? 1.8 - ??23.9 ? Ovulation phase ?0.1 - ??12.0 ?First trimester ?11.0 - ??44.3 ?Second trimester ?? 25.4 - ??83.3 ?Third trimester ?58.7 - 214.0 ? Postmenopausal ? 0.0 - ?? 0.1 Performed at: ??[facility] - [facility] [address] ??[id number] Plant Biology Professor: Ajit Reyes PhD, Phone: ??[phone] Specimen (Source)Anatomical Location / LateralityCollection Method / Volume Collection TimeReceived Time06/11/2025 8:12 AM EST06/11/2025 8:15 AM EST Narrative [facility] - 06/12/2025 4:07 AM EST Authorizing ProviderResult TypeResult StatusCorey Alberta DOCLINISYNCFinal Result Performing OrganizationAddressCity/State/ZIP CodePhone Number [facility] * [facility] PREG QUANT HCG (05/22/2025 9:51 AM EST)ComponentValueRef RangeTest Method Analysis TimePerformed AtPathologist SignatureHCG QUANTITATIVE<1mIU/mLTBH Comment: 5-50 ? 0.2-1 WEEK 50-500 ? 1-2 [...] Team MemberRelationshipSpecialtyStart DateEnd Date Esteban Lane MD [address] [place] [phone] PCP - GeneralFamily Medicine07/23/23
--- OUTSIDE RECORDS SUMMARY | 2025-07-04 09:13 | XMS_ITS | Clinical Summary ---
Author Organization [facility] Address [address] [place] [address] Phone Care Team Providers Care Multi Slide Machine Tender Name Role Phone Unavailable Primary Care Provider Unavailabl e Social History Tobacco UseTypesPacks/DayYears UsedDateSmoking Tobacco: Never Assessed CommentsUnknownSex and Gender InformationValueDate RecordedSex Assigned at Not on fileLegal ZfyDebkmq95/25/2022 8:29 PM ESTGender IdentityNot on fileSexual OrientationNot on file Plan of Treatment Not on file
== END 2025-07-04 09:08 | disposition home or self-care (01) ==
LOC: LAB 09:10
PROVIDERS: PCP Family Medicine; Visit Provider Obstetrics & Gynecology
DX: N97.0 Female infertility associated with anovulation (principal)
CPT/HCPCS: 36415; 84144